=== PATIENT | male | born 1945 | race Caucasian/White ===

== ENCOUNTER 2025-07-25 09:51 | Outpatient (CLI) | payer MEDICARE, OTHER, SELFPAY ==
[2025-07-25 11:32] LABS: Hematocrit 41.7 % (42.0-52.0); Hemoglobin 14.1 g/dL (14.0-18.0); Mean Corpuscular HGB Conc 33.8 g/dl (32-36); Mean Corpuscular Hemoglobin 32.0 pg (26-34); Mean Corpuscular Volume 94.6 fl (80-100); Platelet Count Result 218 k/mm3 (150-375); Red Blood Count 4.41 M/mm3 (4.6-6.20); White Blood Count 7.2 K/mm3 (4.5-10.0)
[2025-07-25 11:35] LABS: Add Urine Microscopic? YES; Appearance Urine Clear (Clear); Glucose Urine UA Negative (Negative); Leukocyte Esterase Ur Negative LEU/UL (Negative); Nitrate Urine Negative (Negative); Specific Grav Ur 1.029 (1.001-1.035)
[2025-07-25 11:42] LABS: Anion Gap 9 mmol/L (4-12); Blood Urea Nitrogen 17 mg/dL (9-20); Calcium 9.1 mg/dL (8.4-10.2); Carbon Dioxide 23 mmol/L (22-30); Chloride 103 mmol/L (98-107); Estimated Glomerular Filt Rate > 60; Glucose 106 mg/dL (65-110); Potassium 4.2 mmol/L (3.4-5.0); Sodium 135 mmol/L (137-145)
[2025-07-25 11:45] LABS: INR 1.1; Prothrombin Time 14.5 Seconds (11.1-14.7)
[2025-07-25 11:46] LABS: Partial Thromboplastin Time 29.9 Seconds (22.3-36.8)
== END 2025-07-25 09:52 | disposition home or self-care (01) ==
LOC: ANHSURGERY 09:59
PROVIDERS: Visit Provider Neurological Surgery
DX: Z01.818 Encounter for other preprocedural examination (principal); M48.062 Spinal stenosis, lumbar region with neurogenic claudication; E78.00 Pure hypercholesterolemia, unspecified
CPT/HCPCS: 36415; 80048; 81001; 85027; 85610; 85730

== ENCOUNTER 2025-08-10 02:01 | Day surgery (SDC) | payer MEDICARE, OTHER, SELFPAY ==
[2025-07-25 10:15] VITALS: BMI 33.2
[2025-07-25 10:17] VITALS: BP 123/59; PULSE 59; RESP 16; TEMP 36.7; O2SAT 97
--- NOTE | 2025-07-25 10:41 | PC.NURSE ---
Addendum entered by Christin Tolbert RN 07/25/25 10:56: HOLD IBUPROFEN (ALL NSAIDS) 7 DAYS PRE-OP PER DR WHITESIDE. LAST DOSE-08/02/25. PT RELAYS UNDERSTANDING. Original Note: [facility] has started construction of its new state of the art ER which will open Spring 2026. With this, we anticipate parking may be a challenge for some our surgical patients and families. Parking spaces are limited but are available for all Surgical, obstetrics, and ER patients sharing this lot. If you arrive and find you are having a hard time finding a parking space, please note that we understand the challenges, please drive around the hospital and park near Hospital Entrance 1. When you enter this entrance, you can ask a volunteer to direct or take you back to the surgical waiting area to check in. We appreciate everyone?s understanding of these expected challenges while we build for your future. Report to the Outpatient Waiting Room, entrance under the green pavilion located off [address], at time __7:30AM___ on date __08/10/25___. Planned Procedure Time: ___9:30AM___.? Time changes happen often and if your time is changed the preop area will call you the afternoon before. - You and your visitor will be asked to self-screen and do not enter if you have any COVID symptoms. Please call surgeon if you need to reschedule. - A mask is optional within the hospital at this time. Patients may have clear liquids (water, carbonated beverages, clear teas, apple juice) until 3 hours prior to surgery (6:30am) with a maximum of 20 ounces. - No food from midnight until time of surgery and no smoking, or chewing tobacco (or any form of nicotine). No chewing gum, candy or mints. Take only the following medications with a SIP of water on the morning of surgery: __NONE DO NOT STOP ANY OF YOUR OTHER PRESCRIPTION MEDICATIONS PRIOR TO SURGERY EXCEPT THE FOLLOWING Hold all vitamins and supplements for 3 days per anesthesiologist. Medications to discontinue per physician NONE Date to take last dose Please no make-up, nail indonesian, hairspray, perfume, deodorant, or body powder the day of surgery.? No jewelry (including any body piercings) or valuables the day of surgery, leave them at home.? Please take a shower or bath the night before, or the morning of, surgery with an antibacterial soap.? Wear comfortable, loose fitting clothing.? - Jewelry must be removed prior to entering the operating room.? Rings and piercings that are not removed may be cut off. - The hospital will not accept responsibility for valuables.? - Please leave all valuables, including medications, at home the day of surgery. If you are going home after surgery, a licensed transportation driver must drive you home.? - NO public transportation without another adult if you receive anesthesia. - We recommend that an adult stay with you for 24 hours following discharge. - We also recommend that you do not drive, make important decision, drink alcoholic beverages, or take any drugs that were not prescribed by your health care provider for at least 24 hours after your discharge time. Follow any additional instructions given to you from your surgeon. Telephone instructions given to ____PATIENT and asked if any additional questions and then verbalized understanding. Patient advised to call surgeon office or pre surgery nurse liaison [phone] if any additional questions.
[2025-08-10] VITALS (15 sets, daily range): BP systolic 118–139; BP diastolic 60–84; PULSE 56–71; RESP 10–20; TEMP 36.5–36.6; O2SAT 95–100
--- NOTE | ~2025-08-10 | XR_ITS ---
EXAMINATION: XR fluoroscopy no charge DATE: 08/10/2025 11:23 INDICATION: L2-L5 bilateral lumbar laminectomies and medial facet the kidneys TECHNIQUE: 2 fluoroscopic images of the lumbar spine were obtained during procedure performed by Dr. Hartman. Radiologist was not present for the imaging or procedure. The amount of fluoroscopy time used during this procedure was 0.2 minutes. Total DAP was 2.42 Gycm^2. COMPARISON: None. FINDINGS: Images demonstrate soft tissue retractors projecting over the soft tissues posterior to the lumbar spine. As processes of L3 and L4 are not appreciated on the second image consistent with their interval laminectomies. The tips of a pair of metallic probes project over the L2-L3 and L4-L5 facet joints. Within linear metallic wire projects over the intervening posterior elements. IMPRESSION: 1. Fluoroscopy utilized during neurosurgical procedure at the lumbar spine. See procedure note for further detail. Reviewed, dictated and finalized at location A.
--- NOTE | 2025-08-10 08:55 | P.HP_ITS ---
H&P: HPI History of Present Illness Date/Time: 08/10/25 08:55 Chief Complaint: 80-year-old gentleman who presents low back pain as well as pain primarily in his legs. He feels like there is a point where he can not stand for very long. He notes that pain is unbearable when he stands up straight he consider use a walker and be okay he has had 2 epidurals and a mild procedure with no significant relief of his symptoms. He does note that the epidural steroids helped for about a day and mild helped slightly. He has an MRI of the lumbar spine which indicates multilevel lumbar degenerative disc disease and spinal stenosis. He has moderate to severe stenosis at L2-3 and severe spinal stenosis at L3-4 and L4-5. He has no significant central canal stenosis at L5- S1 however he does have significant loss of disc height. HE is now here for a L2-5 bilateral lumbar laminectomy and bilateral medial facetectomy. [facility] Past Medical History Medical History Arthritis Social History Social History Smoking status: Unknown if ever smoked Alcohol intake: never Substance use: never Substance use type: does not use Do You Feel Safe in your Home?: Yes Lack of Transportation: No Lack of Food: Never True Current Housing: Decline to Answer Concerned About Future Housing: Decline to Answer Difficulty Paying Gas/Electric Bills: No Difficulty Paying for Meds: No Currently Unemployed: No Education: High School Diploma/GED Difficulty w/ Childcare or Family Care: No Meds Home Medications and Allergies Home Medications ?Medication ?Instructions ?Recorded ?Confirmed ?Type pravastatin 40 mg tablet 40 mg PO DAILY 07/06/2507/19 History ibuprofen 200 mg tablet (IBU-200) 600 mg PO Q6H PRN pa in 07/25/25 07/25/25 History Allergies Allergy/AdvReac Type Severity Reaction Status Date / Time Sulfa (Sulfonamide Allergy Hives Verified 08/10/25 07:50 Antibiotics) Vital Signs Vital Signs - 24 hr 08/10/25 07:54 Temperature 97.7 F Pulse Rate 71 Respiratory Rate 18 Blood Pressure 137/68 Pulse Oximetry 99 Oxygen Delivery Room Air Exam Narrative: awake alert no acute distress MAEW no focal deficit Assessment and Plan Assessment and plan (1) Spinal stenosis, lumbar region with neurogenic claudication: Code(s): M48.062 - Spinal stenosis, lumbar region with neurogenic claudication Status: Acute Plan HE is now here for a L2-5 bilateral lumbar laminectomy and bilateral medial facetectomy.
--- NOTE | 2025-08-10 08:55 | WPDHPUPDATE1 ---
History and Physical Update Update Date/Time: 08/10/25 08:55 History and Physical has been reviewed, including an updated exam of the patient. There are NO changes in the patient's condition. Risks, benefits, and alternatives have been discussed and questions answered. Patient agrees to proceed with procedure.
--- NOTE | 2025-08-10 08:57 | P.PNAN_ITS ---
Anes - Initial Pre Proc Eval Procedure: Operation Date: 08/10/25 09:30 Proposed Procedures p L2 -L5 Bilateral Lumbar Laminectomy, Bilateral Medial Facetectomy - Bakari Hartman MD Date/Time: 08/10/25 08:57 Surgeon: Bakari Hartman MD Pre Op Diagnosis: Lumbar Stenosis Patient Data Age: 80 Gender: M Height: 1.83 m Weight: 108 kg Last Vital Signs Temp 36.5 C 08/10/25 07:54 Pulse 71 08/10/25 07:54 Resp 18 08/10/25 07:54 BP 137/68 08/10/25 07:54 Pulse Ox 99 08/10/25 07:54 O2 Del Method Room Air 08/10/25 07:54 Allergies Allergy/AdvReac Type Severity Reaction Status Date / Time Sulfa (Sulfonamide Allergy Hives Verified 08/10/25 07:50 Antibiotics) Home Medications ?Medication ?Instructions ?Recorded ?Confirmed ?Type pravastatin 40 mg tablet 40 mg PO DAILY 07/06/2507/19 History ibuprofen 200 mg tablet (IBU-200) 600 mg PO Q6H PRN pa in 07/25/25 07/25/25 History ECG: SR with AV block Patient hx anesthesia problems: none Family hx anesthesia problems: none Results Review: All pre-operative results and documents have been reviewed as part of the pre- operative evaluation. [facility] Past Medical History Medical History Arthritis Social History Social History Smoking status: Unknown if ever smoked Alcohol intake: never Substance use: never Substance use type: does not use Do You Feel Safe in your Home?: Yes Lack of Transportation: No Lack of Food: Never True Current Housing: Decline to Answer Concerned About Future Housing: Decline to Answer Difficulty Paying Gas/Electric Bills: No Difficulty Paying for Meds: No Currently Unemployed: No Education: High School Diploma/GED Difficulty w/ Childcare or Family Care: No Anes - Eval Final PreProcedure Day of Procedure 08/10/25 08:57 Patient weight: obese Heart: regular rate and rhythm Lungs: normal air movement Airway: Mallampati scale class II Neurological: alert and oriented Last oral intake: >/= 8 hours ASA classification: III Emergent: no Anesthetic plan: proceed Anesthesia type and monitoring: general ETT and standard monitoring Results Review: All pre-operative results and documents have been reviewed as part of the pre- operative evaluation. Informed Consent: The patient's anesthetic plan and its attendant risks and benefits were discussed with the patient/family/POA. Questions were solicited and answers provided to the satisfaction of the patient/family/POA.
[2025-08-10] MEDS: ceFAZolin 2 GM in SODIUM CHLORIDE 0.9% IV 50 ML 100 ML IVPB (09:08)
[2025-08-10] MEDS: BUPIVACAINE/EPINEPHRINE 0.5% 50 ML VIAL 10 ML INFILTRATE (09:36)
--- NOTE | 2025-08-10 11:17 | W.PM.PROC2 ---
Procedure Note - Detailed Date of Procedure 08/10/25 Pre-op Diagnosis Lumbar Stenosis Post-op Diagnosis Same Procedure Performed L2-5 bilateral lumbar laminectomy and medial facetectomy Use of operative microscope for microdissection Surgeon Bakari Hartman MD Anesthesia General Findings Severe lumbar spinal stenosis worse at L3/L4 Description of Procedure Once the patient was intubated the patient was positioned prone onto the [place] frame. Lateral fluoroscopy was brought in to confirm the L2-5 levels. A skin incision was marked. The patient was then prepped and draped in the usual sterile fashion. Final time-out was performed indicating correct patient procedure and site. I injected local anesthetic along the incision line. I opened the incision with a scalpel. Bovie electrocautery was used to open the tissues down to the fascia. I then placed a self-retaining retractor I then used Bovie electrocautery to subperiosteally dissect the muscle from the lamina. I then brought in lateral fluoroscopy to confirm the L2-5 levels. Once this was completed I used a rongeur to remove the spinous processes between L2-3 and L4-5. I then placed deep self-retaining tractors. Microscope was brought in for the remainder of the case. I then used a high-speed bur to drill trough laminectomies L2-5. The remainder of the spinous process was on bloc. I then used a [place] 4 an upgoing curette to be undermined the lateral recess and remove any additional bony or ligamentous compression with Torres. Once this was completed I placed a nerve hook at the top and bottom of the decompression site and took a lateral fluoroscopy to confirm I decompressed from L2-5. Hemostasis was then obtained and the wound was irrigated copiously. I then placed a drain underneath the muscle tunneling out through exit site removed from the wound. I then closed the wound in layers. There were no complications during the surgery. Estimated Blood Loss 150 Complications No immediate complications Condition Stable [facility] Billing Surgery - Charge Forward: Surgery Billing
[2025-08-10] MEDS: LACTATED RINGERS 1,000 ML 30 ML IV CONT ×2 (11:22)
[2025-08-10] MEDS: fentaNYL CITRATE INJ (*CRX) 100 MCG/2 ML VIAL 25 MCG IV PUSH ×6 (11:59→12:35)
[2025-08-10] MEDS: HYDROcodone/acetaminophen (*CRX) 10-325 MG TABLET 1 TAB PO ×2 (14:00→20:45)
--- NOTE | 2025-08-10 14:19 | ADMGEN ---
This patient, Haroldo Calero, was admitted to [facility] Surg Room 317-01. Patient/family oriented to hospital policies and general routines including ID bracelet, bed and alarms, visiting hours, pain management, procedures, bathroom and other care routines, personal items, smoking policy, room service/diet, and visiting hours. Information on how to activate the Rapid Response Team has been discussed. Patient/Family are encouraged to report perceived risks to care and to ask questions if they do not understand what they are told or what they should do.
[2025-08-10] MEDS: DOCUSATE SODIUM 100 MG CAPSULE PO (20:47)
[2025-08-11 00:29] VITALS: BP 122/62; PULSE 69; RESP 20; TEMP 36.5; O2SAT 96
[2025-08-11 04:27] VITALS: BP 123/63; PULSE 73; RESP 20; TEMP 36.5; O2SAT 96
[2025-08-11] MEDS: HYDROcodone/acetaminophen (*CRX) 10-325 MG TABLET 1 TAB PO ×2 (06:41→11:58)
== END 2025-08-11 13:26 | disposition home or self-care (01) ==
LOC: ANHSURGERY 07:15 → ANH3MEDSUR 14:48
PROVIDERS: Visit Provider Neurological Surgery
PROC: (CPT 63005; principal; 2025-08-10 09:30)
DX: M48.062 Spinal stenosis, lumbar region with neurogenic claudication (principal); M19.90 Unspecified osteoarthritis, unspecified site; E66.9 Obesity, unspecified; Z68.32 Body mass index [BMI] 32.0-32.9, adult; Z79.1 Long term (current) use of non-steroidal anti-inflammatories (NSAID)
CPT/HCPCS: 63047; 63048 ×2; 97116; 97161; 97166; 97535; 99199; J0690; A9270; J1100; J1171; J1200; J2003; J2405; J2704; J3010; J7120